=== PATIENT | male | born 1955 | race African-American/Black ===

== ENCOUNTER 2017-11-12 21:00 | Emergency (ER) | payer SELFPAY ==
[~2017-11-12] VITALS: Ht 175.3 cm; Wt 32.7 kg
== END 2017-11-12 21:18 | disposition home or self-care (01) ==
LOC: FSED 21:00
DX: M54.5 Low back pain (principal); M54.6 Pain in thoracic spine; S33.5XXA Sprain of ligaments of lumbar spine, initial encounter; V43.52XA Car driver injured in collision with other type car in traffic accident, initial encounter; Y92.488 Other paved roadways as the place of occurrence of the external cause
CPT/HCPCS: 99282